=== PATIENT | male | born 1950 | race Caucasian/White ===

== ENCOUNTER 2017-07-26 13:00 | Emergency (ER) | payer BC ==
[~2017-07-26 13:00] MED LIST: ALLO300T79; AMIT10TA6 PO; ASPI81CH43; DILT240C50 PO; FENT75DI2; FURO40TA GT; HYDR-1421 PO; INSU70IN3 SC; LEVO112T35 PO; MELO-61; METO-158 PO; POTA20TA53; ROSU20TA14 PO
[2017-07-26 13:12] VITALS: BP 0/0
== END 2017-07-26 15:33 | disposition home or self-care (01) ==
LOC: EDBD 13:00 → ER 13:01
DX: I46.9 Cardiac arrest, cause unspecified (principal); I11.0 Hypertensive heart disease with heart failure; I50.9 Heart failure, unspecified; I25.2 Old myocardial infarction; E11.9 Type 2 diabetes mellitus without complications; Z85.038 Personal history of other malignant neoplasm of large intestine; Z79.899 Other long term (current) drug therapy; Z88.8 Allergy status to other drugs, medicaments and biological substances
CPT/HCPCS: 92950